=== PATIENT | female | born 1970 | race Caucasian/White ===

== ENCOUNTER 2018-10-28 14:23 | Emergency (ER) | payer OTHER ==
[2018-10-28] MEDS ORDERED: Sodium Chloride 0.9% 2.5 ML Syringe FLUSH PRN (14:43)
[2018-10-28] MEDS ORDERED: Sodium Chloride 0.9% 10 ML Syringe FLUSH PRN (14:43)
[2018-10-28] MEDS ORDERED: Sodium Chloride 0.9% 1,000 ML IV ONE (14:43)
--- NOTE | 2018-10-28 14:52 | EDM.PDOC ---
ED HPI GENERAL MEDICAL PROBLEM - General Chief Complaint: Abdominal Pain Stated Complaint: ABDOMINAL PAIN Time Seen by Provider: 10/28/18 14:27 Source of Information: Reports: Patient History Limitations: Reports: No Limitations - History of Present Illness INITIAL COMMENTS - FREE TEXT/NARRATIVE: History of present illness: []Patient has had 4 days of left-sided upper and lower abdominal pain. Patient has had diverticulitis in the past and one episode felt similar to this. Review of systems: As per history of present illness and below otherwise all systems reviewed and negative. Past medical history: As per history of present illness and as reviewed below otherwise noncontributory. Surgical history: As per history of present illness and as reviewed below otherwise noncontributory. Social history: No reported history of drug or alcohol abuse. Family history: As per history of present illness and as reviewed below otherwise noncontributory. Physical exam: General: Well developed, well nourished in NAD HEENT: Atraumatic, normocephalic, pupils reactive, negative for conjunctival pallor or scleral icterus, mucous membranes moist, throat clear, neck supple, nontender, trachea midline. Lungs: Clear to auscultation, breath sounds equal bilaterally, chest nontender. Heart: S1S2, regular, negative for clicks, rubs, or JVD. Abdomen: NABS, Soft, nondistended, tenderness left lower quadrant without rebound or guarding. Negative for masses or hepatosplenomegaly. Negative for costovertebral tenderness. Pelvis: Stable nontender. Genitourinary: Deferred. Rectal: Deferred. Extremities: Atraumatic, negative for cords or calf pain. Neurovascular unremarkable. Neuro: Awake, alert, oriented. Cranial nerves II through XII unremarkable. Cerebellum unremarkable. Motor and sensory unremarkable throughout. Exam nonfocal. Skin:warm and dry Diagnostics: CBC, chemistry, lipase, UA, CT abdomen pelvis-the enteritis and perforation with a 7 x 4 x 3 abscess in the left lower quadrant. Questionable shoulder was performed Therapeutics: IV hydration patient declined pain medication ED Course: Stable, patient is being transferred to [facility] to the emergency room Dr. Galdamez accepts. Patient is being driven by her significant other who is a cardiovascular surgical tech here at this hospital. Patient is instructed to go directly to the hospital and to remain NPO. Impression: Enteritis with perforation, abscess left lower quadrant with questionable fistulas, Zosyn IV, IV hydration Prescriptions: None Plan: Transfer to [facility] to go directly to the emergency room do not eat or drink anything on the way. Definitive disposition and diagnosis as appropriate pending reevaluation and review of above. left abdomen Pain Score (Numeric/FACES): 2 - Related Data Allergies Allergy/AdvReac Type Severity Reaction Status Date / Time hydrocodone Allergy Hives Verified 10/28/18 14:38 Home Meds: Home Meds Aspirin 81 mg PO DAILY 10/28/18 [History] Cholecalciferol (Vitamin D3) [Vitamin D3] 1 cap PO DAILY 10/28/18 [History] Dicyclomine [Bentyl] 10 mg PO BID 10/28/18 [History] Losartan [Cozaar] 100 mg PO DAILY 10/28/18 [History] Melatonin 5 mg PO BEDTIME PRN 10/28/18 [History] Omeprazole 20 mg PO DAILY PRN 10/28/18 [History] hydroCHLOROthiazide [Hydrochlorothiazide] 25 mg PO DAILY 10/28/18 [History] Past Medical History HEENT History: Reports: Impaired Vision Cardiovascular History: Reports: Hypertension Gastrointestinal History: Reports: Other (See Below) Other Gastrointestinal History: Diverticulitis - Infectious Disease History Infectious Disease History: Reports: Chicken Pox - Past Surgical History Musculoskeletal Surgical History: Reports: Knee Replacement Social & Family History - Family History Cardiac: Reports: Aneurysm, CAD, [place] Endocrine/Metabolic: Reports: Diabetes, Type I Other Dermatologic Family History: Brain Tumor Oncologic: Reports: Uterine - Tobacco Use Smoking Status *Q: Current Every Day Smoker Years of Tobacco use: 25 Packs/Tins Daily: 0 - Recreational Drug Use Recreational Drug Use: No ED ROS GENERAL - Review of Systems Review Of Systems: ROS reveals no pertinent complaints other than HPI. ED EXAM, GI/ABD - Physical Exam Exam: See Below Course - Vital Signs Last Recorded V/S: Last Vital Signs Temp 95.6 F 10/28/18 14:33 Pulse 86 10/28/18 17:38 Resp 16 10/28/18 17:38 BP 137/73 10/28/18 17:38 Pulse Ox 95 10/28/18 17:38 - Orders/Labs/Meds Orders: Active Orders 24 hr Category Date Time Status Piperacillin/Tazobactam [Piperacil-Tazobact] 3.375 gm Med 10/28/18 18:36 Active Sodium Chloride 0.9% [Normal Saline] 50 ml IV ONETIME Sodium Chloride 0.9% [Saline Flush] Med 10/28/18 14:43 Active 10 ml FLUSH ASDIRECTED PRN Sodium Chloride 0.9% [Saline Flush] Med 10/28/18 14:43 Active 2.5 ml FLUSH ASDIRECTED PRN Saline Lock Insert [OM.PC] Stat Oth 10/28/18 14:43 Ordered Medication Orders Piperacillin Sod/Tazobactam (Sod 3.375 gm/ Sodium Chloride) 50 mls @ 100 mls/ hr IV ONETIME ONE Stop: 10/28/18 19:05 Last Admin: 10/28/18 18:45 Dose: 100 mls/hr Sodium Chloride (Saline Flush) 10 ml FLUSH ASDIRECTED PRN PRN Reason: Keep Vein Open Sodium Chloride (Saline Flush) 2.5 ml FLUSH ASDIRECTED PRN PRN Reason: Keep Vein Open Labs: Laboratory Tests 10/28/18 10/28/18 10/28/18 Range/Units 14:51 14:51 15:07 WBC 14.26 H (4.0-11.0) K/uL RBC 4.95 (4.30-5.90) M/uL Hgb 13.3 (12.0-16.0) g/dL Hct 40.4 (36.0-46.0) % MCV 81.6 (80.0-98.0) fL MCH 26.9 L (27.0-32.0) pg MCHC 32.9 (31.0-37.0) g/dL RDW Std Deviation 42.5 (28.0-62.0) fl RDW Coeff of Inge 14 (11.0-15.0) % Plt Count 401 H (150-400) K/uL MPV 9.30 (7.40-12.00) fL Neut % (Auto) 73.5 (48.0-80.0) % Lymph % (Auto) 14.6 L (16.0-40.0) % Emmet % (Auto) 10.8 (0.0-15.0) % Eos % (Auto) 0.9 (0.0-7.0) % Baso % (Auto) 0.2 (0.0-1.5) % Neut # (Auto) 10.5 H (1.4-5.7) K/uL Lymph # (Auto) 2.1 (0.6-2.4) K/uL Emmet # (Auto) 1.5 H (0.0-0.8) K/uL Eos # (Auto) 0.1 (0.0-0.7) K/uL Baso # (Auto) 0.0 (0.0-0.1) K/uL Nucleated RBC % 0.0 /100WBC Nucleated RBCs # 0 K/uL Sodium 138 (136-145) mmol/L Potassium 2.9 L (3.5-5.1) mmol/L Chloride 103 (98-107) mmol/L Carbon Dioxide 25.4 (21.0-32.0) mmol/L BUN 11 (7.0-18.0) mg/dL Creatinine 0.8 (0.6-1.0) mg/dL Est Cr Clr Drug Dosing 73.46 mL/min Estimated GFR (MDRD) > 60.0 ml/min Glucose 96 (74-106) mg/dL Calcium 9.0 (8.5-10.1) mg/dL Total Bilirubin 0.4 (0.2-1.0) mg/dL AST 11 L (15-37) IU/L ALT 12 L (14-63) IU/L Alkaline Phosphatase 85 (46-116) U/L Total Protein 8.3 H (6.4-8.2) g/dL Albumin 3.0 L (3.4-5.0) g/dL Globulin 5.3 H (2.6-4.0) g/dL Albumin/Globulin Ratio 0.6 L (0.9-1.6) Lipase 52 L (73-393) U/L Urine Color YELLOW Urine Appearance CLEAR Urine pH 6.0 (5.0-8.0) Ur Specific [place] 1.010 (1.001-1.035) Urine Protein NEGATIVE (NEGATIVE) mg/dL Urine Glucose (UA) NEGATIVE (NEGATIVE) mg/dL Urine Ketones NEGATIVE (NEGATIVE) mg/dL Urine Occult Blood MODERATE H (NEGATIVE) Urine Nitrite NEGATIVE (NEGATIVE) Urine Bilirubin NEGATIVE (NEGATIVE) Urine Urobilinogen 0.2 (<2.0) EU/dL Ur Leukocyte Esterase NEGATIVE (NEGATIVE) Urine RBC 2-4 (0-2/HPF) Urine WBC 0-1 (0-5/HPF) Ur Epithelial Cells FEW (NONE-FEW) Urine Bacteria FEW (NEGATIVE) Meds: Medications Generic Name Dose Route Start Last Admin Trade Name Freq PRN Reason Stop Dose Admin Piperacillin Sod/Tazobactam 50 mls @ 100 mls/hr 10/28/18 18:36 10/28/18 18:45 Sod 3.375 gm/ Sodium Chloride IV 10/28/18 19:05 100 mls/hr ONETIME ONE Administration Sodium Chloride 10 ml 10/28/18 14:43 Saline Flush FLUSH ASDIRECTED PRN Keep Vein Open Sodium Chloride 2.5 ml 10/28/18 14:43 Saline Flush FLUSH ASDIRECTED PRN Keep Vein Open Discontinued Medications Generic Name Dose Route Start Last Admin Trade Name Lyoq PRN Reason Stop Dose Admin Sodium Chloride 1,000 mls @ 999 mls/hr 10/28/18 14:43 10/28/18 15:05 Normal Saline IV 10/28/18 15:43 999 mls/hr .Bolus ONE Administration Departure - Departure Time of Disposition: 18:41 Disposition: DC/Tfer to Acute Hospital 02 Condition: Good Clinical Impression: Abdominal abscess, Enteritis, Bowel perforation - Discharge Information *PRESCRIPTION DRUG MONITORING PROGRAM REVIEWED*: No *COPY OF PRESCRIPTION DRUG MONITORING REPORT IN PATIENT ISAEL: No Referrals: PCP,None [Primary Care Provider] - Forms: ED Department Discharge - My Orders Last 24 Hours: My Active Orders 10/28/18 14:43 Sodium Chloride 0.9% [Saline Flush] 10 ml FLUSH ASDIRECTED PRN Sodium Chloride 0.9% [Saline Flush] 2.5 ml FLUSH ASDIRECTED PRN Saline Lock Insert [OM.PC] Stat 10/28/18 18:36 Piperacillin/Tazobactam [Piperacil-Tazobact] 3.375 gm Sodium Chloride 0.9% [ Normal Saline] 50 ml IV ONETIME - Assessment/Plan Last 24 Hours: My Active Orders 10/28/18 14:43 Sodium Chloride 0.9% [Saline Flush] 10 ml FLUSH ASDIRECTED PRN Sodium Chloride 0.9% [Saline Flush] 2.5 ml FLUSH ASDIRECTED PRN Saline Lock Insert [OM.PC] Stat 10/28/18 18:36 Piperacillin/Tazobactam [Piperacil-Tazobact] 3.375 gm Sodium Chloride 0.9% [ Normal Saline] 50 ml IV ONETIME
[2018-10-28 15:29] LABS: CHLORIDE,CL 103 mmol/L (98-107); SODIUM,NA 138 mmol/L (136-145)
--- NOTE | 2018-10-28 18:25 | CT ---
INDICATION: upper abdominal pain, and LLQ pain, Hx diverticulitis CT ABDOMEN AND PELVIS WITH CONTRAST TECHNIQUE: Multidetector CT imaging was performed through the abdomen and pelvis following intravenous contrast administration using 100 mL Isovue 370. Coronal and sagittal reconstructions were generated. COMPARISON: None. FINDINGS: Lower chest: Lung bases are clear. Liver: Within normal limits. Gallbladder and bile ducts: Small density within the gallbladder, possibly representing cholelithiasis; if desired, this could be further evaluated with ultrasound. No findings suggestive of cholecystitis. No biliary dilation identified. Pancreas: Unremarkable. Spleen: Normal. Adrenals: No nodules or masses. Kidneys, ureters, and urinary bladder: Bilateral renal cortical cysts, the largest two on the left measuring up to 9.5 centimeters and 8.3 centimeters. No solid renal masses or hydronephrosis. No bladder mass or definite wall thickening. Gastrointestinal tract and abdominal wall: There is abnormal wall thickening of a clump of matted small bowel loops in the left lower quadrant on images 72 - 95 of series 201, and adjacent fat stranding, consistent with enteritis. There is an associated 7.5 x 3.5 x 4.0 centimeter collection of gas and fluid, consistent with an abscess, as on image 41 of series 203 and image 79 of series 201. Lateral to this inflammatory process, image 93 of series 201 shows thickening of the left lateral lower abdominal wall and a small bubble of gas within the abdominal wall, concerning for a fistulous or sinus tract. The appendix is normal. A 2 centimeter lipoma of the ileocecal valve is incidentally noted. There are multiple colon diverticula, without definite evidence of colonic diverticulitis. Vascular structures: Normal caliber abdominal aorta with mild atherosclerotic calcifications. Peritoneum: No free air, abscess, or significant free fluid. Lymph nodes: No pathologically enlarged nodes identified. Reproductive organs: Right fundal uterine fullness, possibly representing a fibroid; consider followup pelvic ultrasound. Bones: Mild spinal degenerative changes. IMPRESSION: 1. Left lower quadrant enteritis as detailed above, with apparent perforation and 7.5 x 3.5 x 4.0 centimeter abscess. Question of fistulas or sinus tract extending into the left lateral lower abdominal wall, as noted. 2. Colonic diverticulosis without definite evidence of colonic diverticulitis. 3. Nonacute additional findings as detailed above. GEORGE MUÑOZ MD [employer] Dictated by Raul Muñoz MD @ 10/28/2018 6:21:32 PM Dictated by: Raul Muñoz MD @ 10/28/2018 18:23:09 (Electronically Signed)
[2018-10-28] MEDS ORDERED: Piperacillin/Tazobactam 3.375 GM in Sodium Chloride 0.9% 50 ML IV ONE (18:36)
[2018-10-28] MEDS ORDERED: Iopamidol 755 MG/ML 500 ML Multipack Bottle IVPUSH STA (19:14)
== END 2018-10-28 19:20 ==
LOC: MW.ED 14:23
DX: K63.1 Perforation of intestine (nontraumatic) (principal); K52.9 Noninfective gastroenteritis and colitis, unspecified; L02.211 Cutaneous abscess of abdominal wall; I10 Essential (primary) hypertension; F17.210 Nicotine dependence, cigarettes, uncomplicated; Z79.82 Long term (current) use of aspirin; Z79.899 Other long term (current) drug therapy; Z88.6 Allergy status to analgesic agent
CPT/HCPCS: 36415; 74177; 80053; 81001; 83690; 85025; 96361; 96365; 99285; J2543; J7040; J7050; Q9967